=== PATIENT | male | born 1980 | race Caucasian/White ===

== ENCOUNTER 2020-09-13 19:17 | Emergency (ER) | payer MEDICAID ==
[~2020-09-13] VITALS: Ht 182.9 cm; Wt 90.7 kg
--- NOTE | 2020-09-13 19:34 | NUR ---
Dr. Nielsen at bedside for MSE.
[2020-09-13] MEDS ORDERED: predniSONE 50 MG TABLET PO ONE (19:45)
[2020-09-13] MEDS ORDERED: ACETAMINOPHEN ES 500 MG TABLET PO ONE (19:45)
[2020-09-13] MEDS ORDERED: IBUPROFEN 800 MG TABLET PO ONE (19:45)
[2020-09-13] MEDS ORDERED: predniSONE 50 MG TABLET ONE (19:51)
[2020-09-13] MEDS ORDERED: IBUPROFEN 800 MG TABLET ONE (19:51)
[2020-09-13] MEDS ORDERED: ACETAMINOPHEN ES 500 MG TABLET ONE (19:52)
--- NOTE | 2020-09-13 19:52 | NUR ---
Xray at bedside.
[2020-09-13 20:56] VITALS: BP 144/98
--- NOTE | 2020-09-13 20:56 | NUR ---
Patient discharged to home in stable condition. Written and verbal after care instructions given. Patient verbalizes understanding of instructions. Stressed follow up or return to ER for worsening s/s. Patient ambulated out of ER with steady gait, no acute signs of distress, VSS, all belongings taken, provided a copy of Xray result.
== END 2020-09-13 20:57 | disposition home or self-care (01) ==
LOC: ER 19:22
DX: M25.532 Pain in left wrist (principal); M79.89 Other specified soft tissue disorders; F17.210 Nicotine dependence, cigarettes, uncomplicated
CPT/HCPCS: 73110; 99284; 99406; J7512; A4663; A9150